=== PATIENT | male | born 1960 | race Caucasian/White ===

== ENCOUNTER 2018-06-13 17:01 | Inpatient (IN) | payer OTHER, SELFPAY ==
[2018-06-13] MEDS ORDERED: Labetalol HCl 100 MG/20 ML VIAL ONE (17:24)
[2018-06-13] MEDS ORDERED: niCARdipine 20MG In NaCl 20 MG/200 ML BAG ONE (17:25)
[2018-06-13 17:51] LABS: #Basophils 0.1 thou/uL (0.0-0.2); #Eosinphils 0.2 thou/uL (0.0-0.7); #Lymphocytes 1.7 thou/uL (1.20-3.40); #Neutrophils 8.9 thou/uL (1.40-6.50); %Basophils 0.9 % (0.0-1.0); %Eosinophils 1.7 % (0.0-10.0); %Lymphocytes 14.5 % (21.0-51.0); %Monocytes 8.3 % (0.0-10.0); %Neutrophils 74.6 % (42.0-75.0); Hemoglobin 15.3 g/dL (14.0-18.0); Mean Corpuscular HGB CONC 35.7 g/dL (32.0-36.0); Mean Corpuscular Hemoglobin 33.5 pg (27.0-31.0); Mean Corpuscular Volume 93.9 fL (78.0-98.0); Mean Platelet Volume 6.7 fL (7.4-10.4); Platelet Count 219 thou/uL (130-400); Red Blood Cell (RBC) Count 4.57 mill/uL (4.70-6.10)
[2018-06-13 17:59] LABS: INR-International Normal Ratio 0.9; PTT 26.1 SEC (22.9-36.1); Prothrombin Time 12.3 SEC (12.0-14.7)
[2018-06-13 18:06] LABS: ALT (SGPT) 16 U/L (8-55); AST (SGOT) 20 U/L (5-34); Albumin 4.5 g/dL (3.5-5.0); Alkaline Phosphatase 70 U/L (40-150); Anion Gap 17 mmol/L (10-20); BUN (Urea Nitrogen) 12 mg/dL (8.4-25.7); Bilirubin, Total 0.6 mg/dL (0.2-1.2); CK (CPK) 182 U/L (30-200); Calc. Creatinine Clearance 0 mL/min (70-130); Calcium 9.7 mg/dL (7.8-10.44); Carbon Dioxide 21 mmol/L (22-29); Chloride 104 mmol/L (98-107); Estimated GFR-MDRD 61; Globulin 2.7 g/dL (2.4-3.5); Glucose 103 mg/dL (70-105); Potassium 3.6 mmol/L (3.5-5.1); Protein, Total 7.2 g/dL (6.0-8.3); Sodium 138 mmol/L (136-145)
[2018-06-13 18:09] LABS: CKMB 2.7 ng/mL (0-6.6); Troponin I Less than 0.010 ng/mL (< 0.028)
--- NOTE | 2018-06-13 18:59 | CT ---
CT HEAD NONCONTRAST: History: Altered mental status. FINDINGS: No comparison. There is no evidence of acute intracranial hemorrhage or infarct. Ventricles appear no rmal in size, shape, and position. There is no mass effect or shift of midline structures. IMPRESSION: No acute intracranial abnormalities are demonstrated. POS: [facility]
--- NOTE | 2018-06-13 18:59 | RAD ---
CHEST ONE VIEW: History: Weakness. FINDINGS: No comparison. Cardiac silhouette is magnified by projection. Pulmonary vasculature unremarkable. Med iastinum is midline. Nipple shadows overlie the lung bases. No lobar consolidation or evidence of pne umothorax. classroom monitor leads overlie the chest. IMPRESSION: No active cardiopulmonary abnormalities are demonstrated. POS: [facility]
[2018-06-13] MEDS ORDERED: Acetaminophen 325 MG TAB PO PRN (22:26)
[2018-06-13] MEDS ORDERED: Ondansetron ODT 4 MG TAB SL PRN (22:26)
[2018-06-13] MEDS ORDERED: Ondansetron PF 4 MG/2 ML Vial IVP PRN (22:26)
[2018-06-13 22:30] VITALS: BMI 20.8
[2018-06-13] MEDS ORDERED: hydrALAZINE 20 MG/ML VIAL SLOW IVP PRN (23:20)
[2018-06-14 00:16] LABS: Troponin I 0.016 ng/mL (< 0.028)
--- NOTE | 2018-06-14 06:44 | HP ---
DATE OF ADMISSION: 06/13/2018 CHIEF COMPLAINT: Left-sided facial droop and left-sided weakness. HISTORY OF PRESENT ILLNESS: The patient is a 58-year-old male who presented via the emergency depart [facility]. The patient reports he has no history of diagnosis of hypertension. States he was in his [facility], went to bed on Thursday evening and felt okay. He slept through the night and the n ext day woke up about 1:00 in the morning on Thursday, the patient got up and went to the mirror and no ticed his left eye had some redness and irritation and felt like he had some left-sided facial swelli ng, he felt tightness and numbness in his left upper extremity and mildly similar in his left lower e xtremity, was not aware of any specific weakness in those areas. Currently, he continues to have faustino e what he describes as a "funny feeling" in his left eye and left upper extremity. He denies having had any problems with speech, swallowing, walking and everything else including the affected limbs we re functioning normally. REVIEW OF SYSTEMS: A 10-system review was negative except for those things mentioned in the history of present illness. PAST MEDICAL HISTORY: Notable for kidney stones. PAST SURGICAL HISTORY: The patient had a left-sided nephrectomy in 1986 secondary to a complicated s taghorn calculus. FAMILY HISTORY: His mother had heart problems. Father of a myocardial infarction and cancer. SOCIAL HISTORY: The patient denies drugs. He smokes 8-12 cigars per day and typically takes a shot of bourbon or júnior with each cigar that he smokes, states he does this 3-4 days per week. He is si ngle. His mother or sister would be his surrogate decision maker and he is a FULL CODE. ALLERGIES: None. MEDICATIONS: None. PHYSICAL EXAMINATION: VITAL SIGNS: Initially, temperature is 98.1, pulse 72, respirations 18, O2 sat 95% on room air, bloo d pressure is 167/103. GENERAL APPEARANCE: Age appropriate male. He is in no distress. He is awake, alert, oriented, plea iker, cooperative. HEENT: PERRL. No OP lesions. There is no erythema of the face or left eye. NECK: Supple and symmetric without lymphadenopathy, JVD, or carotid bruits. HEART: Regular rate and rhythm without murmurs, gallops or rubs. LUNGS: Clear to auscultation bilaterally with good chest wall expansion and air exchange. ABDOMEN: Soft, nontender, nondistended, positive bowel sounds, no masses, no organomegaly. EXTREMITIES: Warm and dry with no cyanosis, clubbing or edema. NEUROLOGIC: Normal. The patient has normal function and sensation and cranial nerves is cognitively intact. LABORATORY DATA: White count 12.0, hemoglobin 15.3, platelets 219. INR 0.9, PTT 26.1. Sodium 138, potassium 3.6, chloride 104, CO2 of 21, BUN 12, creatinine is 1.23, AST is 20, ALT is 16. CK 182, tr oponin less than 0.01, albumin 4.5. A CT of the brain shows no acute intracranial processes noted. Chest x-ray negative. IMPRESSION AND PLAN: 1. Left-sided paresthesias with possibly some left facial droop. The patient's blood pressure was s ignificantly elevated in the emergency department requiring some IV medications in the form of a drip . He was only on that briefly and his pressure improved and the drip was stopped. Continues to have some elevated readings here. We will give him p.r.n. medications. It is entirely possible that the patient may in fact have hypertensive urgency rather than true stroke symptoms. He certainly has ma nifestations and elevated blood pressure to account for hypertensive urgency. It is also possible th e patient has had a cerebrovascular accident, although initial CT scan is negative. We will obtain a n MRI of the brain and carotid Dopplers, echocardiogram and consult Neurology. 2. History of solitary kidney, given the elevated hypertension. We will obtain an ultrasound of the kidney to ensure that it remains good health. 3. History of cigar smoking and alcohol use. The patient does not appear to be a significant candid ate for alcohol withdrawal, but will need to continue to watch him closely. His use is not daily; th erefore, withdrawal is less likely.
[2018-06-14] MEDS ORDERED: Aspirin 325 MG TAB PO SCH (09:00)
--- NOTE | 2018-06-14 10:19 | ULT ---
BILATERAL RENAL ULTRASOUND: Date: 06/14/18 HISTORY: Hypertension. FINDINGS: The patient is status post left nephrectomy. The right kidney measures 11.3 cm in length without foca l mass or hydronephrosis. Cortical echogenicity and thickness is normal. The urinary bladder is gross ly unremarkable. Right-sided ureteral jet is present. IMPRESSION: Status post left nephrectomy, otherwise unremarkable exam. POS: [facility]
--- NOTE | 2018-06-14 10:29 | ULT ---
CAROTID ARTERIAL DOPPLER ULTRASOUND: DATE: 06/14/18 COMPARISON: None. HISTORY: TIA/CVA, assess for carotid artery disease. TECHNIQUE: Multiplanar Calle scale sonographic imaging of the arterial structures of the neck obtained with color flow and spectral analysis. FINDINGS: There is mild atherosclerotic plaque at the origin of the external carotid artery bilaterally. Antegr norma blood flow with normal arterial waveforms are documented within the carotid and vertebral system bilaterally. VESSEL PSV (cm/sec) EDV (cm/sec) Right CCA 104 20 Right ICA 106 50 Right ECA 100 19 Left CCA 105 31 Left ICA 100 39 Left ECA 100 20 ICA/CCA ratio is 1.0 bilaterally. IMPRESSION: No hemodynamically significant stenosis on the basis of sonographic velocity criteria. POS: [facility]
--- NOTE | 2018-06-14 11:26 | MRI ---
BRAIN MRI WITHOUT CONTRAST: Date: 06/14/18 COMPARISON: None. HISTORY: Altered mental status. TECHNIQUE: Multiplanar, multisequence MR imaging of the brain is obtained without contrast. FINDINGS: The diffusion-weighted imaging demonstrates no evidence for acute infarction. The axial gradient echo imaging demonstrates no evidence for intracranial hemorrhage. There is mild mucosal thickening seen throughout the paranasal sinuses with focal polypoid mucosal th ickening involving the alveolar recess of the left maxillary sinus. Arterial flow-voids at the axial level of the skull base appear grossly unremarkable on the T2-weighted imaging. Regional bone marrow signal intensity appears within normal limits. No midline shift, mass effect, or ventricular enlargement. IMPRESSION: No MR evidence of intracranial hemorrhage or acute infarction. POS: [facility]
[2018-06-14 11:32] LABS: #Eosinphils 0.2 thou/uL (0.0-0.7); #Lymphocytes 1.1 thou/uL (1.20-3.40); #Monocytes 0.6 thou/uL (0.11-0.59); #Neutrophils 4.8 thou/uL (1.40-6.50); %Basophils 0.4 % (0.0-1.0); %Eosinophils 2.8 % (0.0-10.0); %Monocytes 8.2 % (0.0-10.0); %Neutrophils 71.6 % (42.0-75.0); Hemoglobin 15.1 g/dL (14.0-18.0); Mean Corpuscular HGB CONC 34.1 g/dL (32.0-36.0); Mean Corpuscular Volume 99.8 fL (78.0-98.0); Mean Platelet Volume 6.8 fL (7.4-10.4); Platelet Count 217 thou/uL (130-400); RBC Distribution Width 11.3 % (11.5-14.5); Red Blood Cell (RBC) Count 4.45 mill/uL (4.70-6.10); White Blood Cell (WBC) Count 6.7 thou/uL (4.8-10.8)
[2018-06-14 11:49] LABS: Anion Gap 11 mmol/L (10-20); BUN (Urea Nitrogen) 11 mg/dL (8.4-25.7); Calc. Creatinine Clearance 83 mL/min (70-130); Calcium 9.2 mg/dL (7.8-10.44); Carbon Dioxide 24 mmol/L (22-29); Cardiac Risk 3.9 (Less than 4.5); Chloride 106 mmol/L (98-107); Cholesterol 173 mg/dl (< 200 Desired); Estimated GFR-MDRD 78; Glucose 98 mg/dL (70-105); HDL Cholesterol 44 mg/dL (>60 Neg Risk); LDL Cholesterol, Calculated 97 mg/dL; Potassium 4.6 mmol/L (3.5-5.1); Sodium 136 mmol/L (136-145); Triglycerides 161 mg/dL (Less than 150)
[2018-06-14] MEDS ORDERED: NIFEdipine XL 30 MG TAB PO SCH (12:45)
[2018-06-14 14:21] LABS: Bilirubin Negative (Negative); Blood, Urine Negative (Negative); Clarity CLEAR (Clear); Glucose, Urine (Dipstick) Negative (Negative); Leukocyte Trace (Negative); Nitrite Negative (Negative); Protein, Urine (Dipstick) Negative (Neg-Trace); Specific Gravity, Urine 1.022 (1.002-1.036)
[2018-06-14 14:23] LABS: Bacteria/HPF None Seen HPF (None Seen); Hyaline Casts/LPF 0-3 HYALINE CAST LPF (0-3 Hyaline); Squamous Epithelial None Seen HPF (0-3); WBC/HPF None Seen HPF (0-3)
[2018-06-14 14:30] LABS: Amphetamine Not Detected (NotDetected); Barbiturates Screen Not Detected (NotDetected); Benzodiazepine Screen Not Detected (NotDetected); Cocaine Metabolite Screen Not Detected (NotDetected); Medtox Control Line Valid? VALID (VALID); Medtox Reader # READER 1; Methadone Not Detected (NotDetected); Methamphetamine Not Detected (NotDetected); Opiate Screen Not Detected (NotDetected); Oxycodone Screen Not Detected (NotDetected); Phencyclidine (PCP) Not Detected (NotDetected); THC/Cannabinoid Screen Not Detected (NotDetected); Tricyclic Screen Not Detected (NotDetected)
[2018-06-14 14:37] LABS: Transitional Epithelial 0-3 HPF (0-3)
[2018-06-14 14:45] LABS: RBC/HPF None Seen HPF (0-3)
[2018-06-14] MEDS ORDERED: Acetaminophen 325 MG TAB PO PRN (20:20)
[2018-06-14] MEDS: NIFEdipine XL 30 MG TAB PO SCH (20:33)
--- NOTE | 2018-06-14 21:35 | PDOC.PN ---
- Subjective Encounter Start Date: 06/14/18 Encounter Start Time: 13:30 Patient seen and examined for HTN crisis/TIA. No new focal deficits. No new complaints. No overnight events - Objective Resuscitation Status: Resuscitation Status FULL:Full Resuscitation MAR Reviewed: Yes Vital Signs & Weight: Vital Signs (12 hours) Temp Pulse Resp BP BP Pulse Ox 06/14/18 20:33 75 156/94 H 06/14/18 19:36 98.4 F 83 15 136/79 95 06/14/18 19:28 98 06/14/18 16:00 86 18 149/91 H 98 06/14/18 15:05 76 157/116 H 06/14/18 13:42 76 166/104 H 06/14/18 12:00 76 18 180/113 H 99 Weight Weight 157 lb 8 oz I&O: 06/13/18 06/14/18 06/15/18 06:59 06:59 06:59 Intake Total 200 Output Total 300 Balance 200 -300 Result Diagrams: 06/14/18 10:54 06/14/18 10:54 EKG Reviewed by me: Yes (Tele SR) Phys Exam - Physical Examination Constitutional: NAD Neck: no JVD Respiratory: no wheezing, no rales, no rhonchi, clear to auscultation bilateral Cardiovascular: RRR, no rub no heaves/pulsations Gastrointestinal: soft, non-tender, no distention, positive bowel sounds Musculoskeletal: no edema Neurological: non-focal, normal sensation, moves all 4 limbs Psychiatric: normal affect, A&O x 3 Dx/Plan - Plan DVT proph w/SCDs 1. HTN crisis with suspected TIA causing left sided weakness with facial droop - improving Cardene drip dced Start Procardia XL, Cont PRN Hydralazine Echo pending MRI brain/Carotid - neg Stat Statins/ASA 2. Tobacco dep/ Intermittent alcohol use Counselled 3. h/o Left nephrectomy Will avoid Nephrotoxic agents Review of Systems - Review of Systems Cardiovascular: negative: chest pain, palpitations, orthopnea, paroxysmal nocturnal dyspnea, edema, light headedness, other Gastrointestinal: negative: Nausea, Vomiting, Abdominal Pain, Diarrhea, Constipation, Melena, Hematochezia, Other - Medications/Allergies Allergies/Adverse Reactions: Allergies Allergy/AdvReac Type Severity Reaction Status Date / Time No Known Drug Allergies Allergy Verified 06/13/18 22:24 Medications: Current Medications Acetaminophen (Tylenol) 650 mg PO Q4H PRN PRN Reason: Headache/Fever or Pain Last Admin: 06/14/18 20:33 Dose: 650 mg Aspirin (Ecotrin) 81 mg PO DAILY [facility] Hydralazine HCl (Apresoline) 10 mg SLOW IVP Q4H PRN PRN Reason: SBP > 185, DBP > 100 Last Admin: 06/14/18 15:05 Dose: 10 mg Nifedipine (Procardia Xl) 30 mg PO BID [facility] Last Admin: 06/14/18 20:33 Dose: 30 mg
--- NOTE | 2018-06-14 22:07 | CON ---
DATE OF CONSULTATION: 06/14/2018 This is a 58-year-old male who has never been to the doctor. He presented with left-sided weakness, all of those symptoms have resolved. He was noted to be hypertensive. 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 PAST HISTORY: 58-year-old male who has never been to the doctor. FAMILY HISTORY: Positive for heart disease. SOCIAL HISTORY: He smoked cigars for pretty much all day long. He drinks most of the day. REVIEW OF SYSTEMS: 10 point review of systems completed, otherwise negative. ALLERGIES: He has no drug allergies, was on no medications. Prior to admission, he does have a family history of hypertension. PHYSICAL EXAMINATION: VITAL SIGNS: He has been moderately hypertensive when I saw him this morning. His blood pressure is 118/130, heart rate is 76, respiratory rate is 18, oximetry is 99 on room air. HEENT: Pupils are equal. Sclerae is anicteric. NECK: Supple. LUNGS: Clear. HEART: Regular rhythm, grade 2/6 systolic murmur. ABDOMEN: Soft and nontender. EXTREMITIES: Without clubbing, cyanosis or edema. NEUROLOGIC: Grossly nonfocal. He has equal strength now. Abdominal ultrasound shows a left nephrectomy. Radiologist did not know he has a single kidney. Symptoms most likely secondary to hypertensive urgency versus transient ischemic attack. He had a noncontrast head CT, which was unremarkable, had no vascular imaging. It has been ordered His MRI that shows no infarction. He will need to be in the hospital for several days. Blood pressure is controlled. I agree with current care. He probably could transfer out of the Intermediate Care Unit to the stroke unit or a medical bed as long as he is having frequent vital signs and evaluations by the nursing staff. This is a 50 minute consult with greater than 50% of time spent on unit with coordination of care. [facility]
--- NOTE | 2018-06-15 07:44 | PRG ---
DATE OF SERVICE: 06/15/2018 Blayne Briggs has no complaints. He has no recurrence of his symptoms. PHYSICAL EXAMINATION: VITAL SIGNS: His blood pressure is much better today 136/79. Last night 142/80. At 4:00 this morni ng heart rates in the 70s, oximetry is 95 on room air. LUNGS: Clear. HEART: Regular rhythm. ABDOMEN: Soft. LABORATORY: No new lab today. Echocardiogram shows a depressed left ventricular systolic function 35%. IMPRESSION: Transient ischemic attack versus hypertensive related neurological abnormalities versus embolic phenomenon from his cardiomyopathy. Cardiology needs to be consulted. He is stable to move out of the Intermediate Care Unit. Smoking cessation was emphasized today. Com pliance with medications also emphasized. At some point he will need evaluation of his coronary lobo zeeshan probably.
[2018-06-15] MEDS: Aspirin 81 mg Enteric Coated Tablet PO SCH (08:11)
[2018-06-15] MEDS: NIFEdipine XL 30 MG TAB PO SCH (08:12)
[2018-06-15] MEDS ORDERED: Labetalol HCl 100 MG/20 ML VIAL SLOW IVP PRN (09:31)
[2018-06-15] MEDS ORDERED: Carvedilol 3.125 MG TAB PO SCH (09:45)
[2018-06-15] MEDS ORDERED: Furosemide 20 MG TAB PO SCH (12:30)
--- NOTE | 2018-06-15 14:13 | CON ---
DATE OF CONSULTATION: 06/15/2018 HISTORY: Blayne Briggs is a 58-year-old white male, who denies any previous cardiac problems. He denies ever being told that he had hypertension in the past. He awoke at 01:00 a.m. on 06/13/2018 with left-sided facial paresthesias and numbness. He came to the emergency room, and on presentation, his blood pressure was 189/116. Head CT and later head MRI showed no evidence of infarction. He has been started on the blood pressure medications. PAST MEDICAL HISTORY: He denies history of hypertension, diabetes, hypercholesterolemia. He did have a left staghorn calculus with multiple infections in the past. OPERATIONS: Left nephrectomy. MEDICATIONS: None. ALLERGIES: None. SOCIAL HISTORY: He smokes 8-12 cigars per day. He drinks, between smoking cigars, 3-4 drinks per day. FAMILY HISTORY: Negative for coronary artery disease in the immediate family. REVIEW OF SYSTEMS: A 12-point review of systems, otherwise, is unremarkable. PHYSICAL EXAMINATION: VITAL SIGNS: Blood pressure 133/92 and pulse 71. HEENT: PERRL. NECK: Supple. CHEST: Clear. CARDIAC EXAMINATION: S1 and S2 normal without any S3, S4, or murmurs. ABDOMEN: Normal bowel sounds, without tenderness or organomegaly. EXTREMITIES: Reveal no clubbing, cyanosis, or edema. NEUROLOGICAL: Grossly intact. LABORATORY DATA: EKG reveals normal sinus rhythm, possible left atrial enlargement, but otherwise unremarkable. Hemoglobin 15.1, hematocrit 44.4, white count 6700, platelets 217,000. INR 0.9. Sodium 136, potassium 4.6, chloride 106, carbon dioxide 24, BUN 11, creatinine 0.99, cholesterol 173, triglycerides 161, HDL 44, LDL 97. TSH is normal. Urine drug screen is unremarkable. Echocardiogram revealed ejection fraction of 35%-40%, mild left ventricular enlargement, mild mitral regurgitation, mild tricuspid regurgitation. IMPRESSION: 1. Cardiomyopathy of uncertain etiology. Certainly, this could be related to uncontrolled hypertension, alcoholic cardiomyopathy, or related to coronary artery disease. 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 2. Hypertension, untreated. 3. LDL of 97. 4. ETOH use. 5. Smoker. 6. S/P left nephrectomy. PLAN: Procardia will be discontinued, and instead, he will be placed on lisinopril 5 mg b.i.d. He will be continued on the carvedilol. He is on aspirin and atorvastatin 10 mg, furosemide 20 mg q.a.m. also will be added. He will undergo adenosine Cardiolite testing to evaluate for possible coronary artery disease. The patient at the present time states he does not think he has health insurance, although he is waiting to get a final word on this. Consideration in the future should be given to transitioning from DAMIEN inhibitor to Entresto if he does indeed have health insurance. [facility]
[2018-06-15] MEDS: Carvedilol 3.125 MG TAB PO SCH (16:40)
[2018-06-15] MEDS: Lisinopril 5 MG TAB PO SCH (20:28)
[2018-06-15] MEDS ORDERED: Atorvastatin Calcium 10 MG TAB PO SCH (21:00)
[2018-06-15] MEDS ORDERED: Lorazepam 1 MG TAB PO PRN (21:17)
--- NOTE | 2018-06-15 21:20 | PDOC.PN ---
- Subjective Encounter Start Date: 06/15/18 Encounter Start Time: 09:30 Patient seen and examined for HTN crisis. No new focal deficits No new complaints. No overnight events - Objective Resuscitation Status: Resuscitation Status FULL:Full Resuscitation MAR Reviewed: Yes Vital Signs & Weight: Vital Signs (12 hours) Temp Pulse Resp BP BP Pulse Ox 06/15/18 20:28 70 117/71 06/15/18 20:00 98.3 F 73 18 117/71 97 06/15/18 15:26 98.8 F 75 16 123/71 97 06/15/18 11:35 98.6 F 71 16 133/92 H 96 Weight Weight 156 lb 14.4 oz I&O: 06/14/18 06/15/18 06/16/18 06:59 06:59 06:59 Intake Total 200 700 720 Output Total 700 Balance 200 0 720 Result Diagrams: 06/14/18 10:54 06/14/18 10:54 EKG Reviewed by me: Yes (Tele SR) Phys Exam - Physical Examination Constitutional: NAD Respiratory: no wheezing, no rhonchi Cardiovascular: RRR, no rub Gastrointestinal: soft, non-tender, positive bowel sounds Musculoskeletal: no edema Neurological: moves all 4 limbs Dx/Plan - Plan DVT proph w/SCDs 1. HTN crisis with suspected TIA causing left sided weakness with facial droop - improving s/p Cardene drip Cont PRN Hydralazine MRI brain/Carotid - neg Stat Statins/ASA 2. Chronic systolic heart failure - ACC stage C Consult Cardiology Add low dose Coreg with ACEI 3. Tobacco dep/ Intermittent alcohol use - Counselled Add ASE protocol 4. h/o Left nephrectomy Will avoid Nephrotoxic agents Review of Systems - Review of Systems Respiratory: negative: Cough, Dry, Shortness of Breath, Hemoptysis, SOB with Excertion, Pleuritic Pain, Sputum, Wheezing Cardiovascular: negative: chest pain, palpitations, orthopnea, paroxysmal nocturnal dyspnea, edema, light headedness, other - Medications/Allergies Allergies/Adverse Reactions: Allergies Allergy/AdvReac Type Severity Reaction Status Date / Time No Known Drug Allergies Allergy Verified 06/13/18 22:24 Medications: Current Medications Acetaminophen (Tylenol) 650 mg PO Q4H PRN PRN Reason: Headache/Fever or Pain Last Admin: 06/14/18 20:33 Dose: 650 mg Aspirin (Ecotrin) 81 mg PO DAILY [facility] Last Admin: 06/15/18 08:11 Dose: 81 mg Atorvastatin Calcium (Lipitor) 10 mg PO HS [facility] Last Admin: 06/15/18 20:28 Dose: 10 mg Carvedilol (Coreg) 3.125 mg PO BID-WM [facility] Last Admin: 06/15/18 16:40 Dose: 3.125 mg Furosemide (Lasix) 20 mg PO DAILY [facility] Hydralazine HCl (Apresoline) 10 mg SLOW IVP Q4H PRN PRN Reason: SBP > 185, DBP > 100 Last Admin: 06/14/18 15:05 Dose: 10 mg Labetalol HCl (Normodyne) 10 mg SLOW IVP Q4H PRN PRN Reason: Systolic BP > 180 Lisinopril (Zestril) 5 mg PO BID [facility] Last Admin: 06/15/18 20:28 Dose: 5 mg Sodium Chloride (Flush - Normal Saline) 10 ml IVF Q12HR [facility] Last Admin: 06/15/18 20:28 Dose: 10 ml Sodium Chloride (Flush - Normal Saline) 10 ml IVF PRN PRN PRN Reason: Saline Flush
[2018-06-16] MEDS ORDERED: Furosemide 20 MG TAB PO SCH (09:00)
[2018-06-16] MEDS ORDERED: Folic Acid 1 MG TAB PO SCH (09:00)
[2018-06-16] MEDS ORDERED: NIFEdipine XL 30 MG TAB PO SCH (09:00)
[2018-06-16] MEDS ORDERED: Multivit, Therapeutic 1 TAB PO SCH (09:00)
[2018-06-16] MEDS: Lisinopril 5 MG TAB PO SCH (11:31)
[2018-06-16] MEDS: Carvedilol 3.125 MG TAB PO SCH ×2 (11:34→18:20)
[2018-06-16] MEDS: Aspirin 81 mg Enteric Coated Tablet PO SCH (11:34)
--- NOTE | 2018-06-16 13:42 | NM ---
CARDIAC SPECT: CLINICAL HISTORY: New heart failure, hypertension, diabetes, dyslipidemia, smoker. TECHNIQUE: A myocardial perfusion scan was performed using the single isotope one day protocol with technetium-9 9m sestamibi. 11 mCi were injected intravenously for the rest exam followed by 33 mCi for the stress exam. Pharmacologic stress with Adenosine was monitored and interpreted by Dr. Mcmahon. FINDINGS: Fairly homogeneous tracer distribution is seen in the myocardial segments on stress and rest images w ithout fixed or reversible defects. GATED SPECT LVEF: 42%. WALL MOTION EXAM: Global hypokinesis. IMPRESSION: No evidence of reversible ischemia. POS: [facility]
[2018-06-16 16:01] VITALS: BP 119/72; TEMP 97.7
[2018-06-16] MEDS ORDERED: ADENOSINE 60 MG/20 ML VIAL ONE (18:49)
--- NOTE | 2018-06-16 20:40 | DIS ---
DATE OF DISCHARGE: 06/16/2018 DISCHARGE DISPOSITION: Home. Follow up with [facility] in 1 week. Follow up with Dr. Jordan Hernandez in 2 months. ALLERGIES: No known drug allergies. The patient was seen and examined on the day of discharge. Denies any new complaints. No chest pain , shortness of breath, or palpitations. DISCHARGE MEDICATIONS: Aspirin 325 mg daily, carvedilol 3.125 mg twice a day, folic acid 1 mg daily, simvastatin 10 mg at bedtime, thiamine, Lasix 20 mg daily, lisinopril 5 mg b.i.d., multivitamin 1 ta blet daily. Basic metabolic profile after 1 week is recommended. Primary care physician is advised to follow. The patient was extensively counseled on congestive heart failure. BRIEF HOSPITAL COURSE: The patient is a 58-year-old male with tobacco dependence, presented to the e mergency room with stroke-like symptoms. Please refer to the history and physical for further detail s. The patient was admitted to the intermediate care unit with a diagnosis of hypertensive crisis. He w as placed on Cardene drip in the emergency room that was later discontinued. He had left-sided weakn ess as well as facial droop on admission that resolved once his blood pressure improved. MRI of the brain was negative for acute CVA. Carotid Doppler was negative for hemodynamically significant steno sis. Echocardiogram showed left ventricular ejection fraction 35-40% with mild mitral regurgitation, mild tricuspid regurgitation without any thrombus in the cardiac chambers. The patient was evaluate d by Cardiology, Dr. Jordan Hernandez. His medications have been optimized per Cardiology. He underw ent a Cardiolite stress test on the day of discharge that was negative for reversible ischemia. Ejec tion fraction on the stress test was 42%. He has been cleared by consultants for discharge. FINAL DIAGNOSES: 1. Hypertensive crisis requiring Cardene drip. 2. Transient ischemic attack. 3. Chronic systolic heart failure, ejection fraction 35-40% range. 4. Tobacco dependence. 5. Intermittent alcohol use. 6. History of left nephrectomy. 7. Chronic kidney disease stage 2. 8. Dyslipidemia. Fasting lipid profile showed triglyceride 161, cholesterol 173, LDL of 97, HDL of 44. DIAGNOSTIC TESTS: TSH was normal at 0.94. BNP was negative. Urine drug screen was negative. Plan of care was discussed with the patient in detail and he stated understanding.
== END 2018-06-16 19:37 | disposition home or self-care (01) | DRG 69 ==
LOC: SCSER 17:01 → ERHOLD 18:35 → IMCU/EMU 21:52 → 2SE 06-15 06:40
PROVIDERS: ADMIT Internal Medicine; ATTEND Internal Medicine
DX: G45.9 Transient cerebral ischemic attack, unspecified (principal); I16.9 Hypertensive crisis, unspecified; G81.94 Hemiplegia, unspecified affecting left nondominant side; I50.22 Chronic systolic (congestive) heart failure; I42.9 Cardiomyopathy, unspecified; I13.0 Hypertensive heart and chronic kidney disease with heart failure and stage 1 through stage 4 chronic kidney disease, or unspecified chronic kidney disease; R29.810 Facial weakness; Z87.442 Personal history of urinary calculi; Z90.5 Acquired absence of kidney; F17.210 Nicotine dependence, cigarettes, uncomplicated; I08.1 Rheumatic disorders of both mitral and tricuspid valves; E78.5 Hyperlipidemia, unspecified; N18.2 Chronic kidney disease, stage 2 (mild)
CPT/HCPCS: 36415; 36416; 70450; 70551; 71045; 76775; 78452; 80053; 80061; 80306; 81001; 82550; 82553; 83880; 84443; 84484; 85025; 85610; 85730; 93005; 93017; 93306; 93880; 96365; 96366; A9500; J0153; J0360

== ENCOUNTER 2018-07-10 15:10 | Observation (INO) | payer SELFPAY ==
[2018-07-10 15:33] LABS: #Eosinphils 0.4 thou/uL (0.0-0.7); #Lymphocytes 1.6 thou/uL (1.20-3.40); #Monocytes 0.5 thou/uL (0.11-0.59); #Neutrophils 4.2 thou/uL (1.40-6.50); %Basophils 0.7 % (0.0-1.0); %Eosinophils 5.3 % (0.0-10.0); %Monocytes 7.6 % (0.0-10.0); %Neutrophils 62.4 % (42.0-75.0); Hemoglobin 15.2 g/dL (14.0-18.0); Mean Corpuscular HGB CONC 36.1 g/dL (32.0-36.0); Mean Corpuscular Hemoglobin 34.9 pg (27.0-31.0); Mean Corpuscular Volume 96.8 fL (78.0-98.0); Mean Platelet Volume 6.8 fL (7.4-10.4); Platelet Count 241 thou/uL (130-400); RBC Distribution Width 11.1 % (11.5-14.5); Red Blood Cell (RBC) Count 4.36 mill/uL (4.70-6.10); White Blood Cell (WBC) Count 6.7 thou/uL (4.8-10.8)
[2018-07-10 15:38] LABS: INR-International Normal Ratio 0.9; Prothrombin Time 12.1 SEC (12.0-14.7)
[2018-07-10 15:39] LABS: PTT 27.1 SEC (22.9-36.1)
[2018-07-10 15:45] LABS: ALT (SGPT) 13 U/L (8-55); AST (SGOT) 19 U/L (5-34); Albumin 4.2 g/dL (3.5-5.0); Alkaline Phosphatase 66 U/L (40-150); Anion Gap 16 mmol/L (10-20); BUN (Urea Nitrogen) 13 mg/dL (8.4-25.7); Bilirubin, Total 0.3 mg/dL (0.2-1.2); CK (CPK) 188 U/L (30-200); Calc. Creatinine Clearance 0 mL/min (70-130); Calcium 9.1 mg/dL (7.8-10.44); Carbon Dioxide 20 mmol/L (22-29); Chloride 108 mmol/L (98-107); Estimated GFR-MDRD 70; Glucose 91 mg/dL (70-105); Potassium 4.2 mmol/L (3.5-5.1); Protein, Total 7.2 g/dL (6.0-8.3); Sodium 140 mmol/L (136-145)
[2018-07-10 15:50] LABS: CKMB 2.5 ng/mL (0-6.6); Troponin I Less than 0.010 ng/mL (< 0.028)
[2018-07-10 15:56] LABS: Magnesium 2.1 mg/dL (1.6-2.6)
[2018-07-10 16:11] LABS: Bilirubin Negative (Negative); Blood, Urine Negative (Negative); Clarity CLEAR (Clear); Glucose, Urine (Dipstick) Negative (Negative); Leukocyte Negative (Negative); Nitrite Negative (Negative); Protein, Urine (Dipstick) Negative (Neg-Trace); Specific Gravity, Urine 1.009 (1.002-1.036); Urobilinogen 0.2 mg/dL (0.2-1.0); pH, Urine 6.5 (5.0-9.0)
[2018-07-10 16:14] LABS: Acetaminophen Less than 6.0 mcg/mL (10.0-30.0); Alcohol 115 mg/dL (Less than 10); Salicylate Less than 8.0 mg/dL (15.0-30.0)
[2018-07-10 16:34] LABS: Amphetamine Not Detected (NotDetected); Barbiturates Screen Not Detected (NotDetected); Benzodiazepine Screen Not Detected (NotDetected); Cocaine Metabolite Screen Not Detected (NotDetected); Medtox Control Line Valid? VALID (VALID); Medtox Reader # READER 1; Methadone Not Detected (NotDetected); Methamphetamine Not Detected (NotDetected); Opiate Screen Not Detected (NotDetected); Oxycodone Screen Not Detected (NotDetected); Phencyclidine (PCP) Not Detected (NotDetected); THC/Cannabinoid Screen Not Detected (NotDetected); Tricyclic Screen Not Detected (NotDetected)
--- NOTE | 2018-07-10 16:44 | CT ---
BRAIN CT WITHOUT IV CONTRAST: 07/10/18 HISTORY: 58-year-old male with history of stroke alert, unresponsive. Bilateral maxillary sinus mucosal disease as well as ethmoid and sphenoid sinus mucosal disease. The mastoids are clear. There is no focal mass or midline shift. No intra or extra-axial hemorrhage. No C T evidence for acute infarct. IMPRESSION: Sinus mucosal disease. No significant acute process involving the brain. No mass or bleed. Findings were discussed with Dr. Cisneros's nurse in the ER at 3:37 p.m., 07/10/18. He was with a patie nt and could not come to the phone. POS: [facility]
--- NOTE | 2018-07-10 17:40 | RAD ---
CHEST ONE VIEW: 07/10/18 COMPARISON: 06/13/18 HISTORY: Pain. Unresponsive patient. FINDINGS: Normal cardiac silhouette. The pulmonary vessels and hilum are normal. Costophrenic angles are clear. No masses or consolidation. No pneumothorax or osseous abnormalities. IMPRESSION: No acute cardiopulmonary process. POS: [facility]
[2018-07-10 19:05] LABS: Troponin I Less than 0.010 ng/mL (< 0.028)
[2018-07-10] MEDS ORDERED: Acetaminophen 325 MG TAB PO PRN (19:56)
[2018-07-10] MEDS ORDERED: Ondansetron PF 4 MG/2 ML Vial IVP PRN (19:56)
[2018-07-10] MEDS ORDERED: Ondansetron ODT 4 MG TAB PO PRN (19:56)
[2018-07-10] MEDS ORDERED: Labetalol HCl 100 MG/20 ML VIAL SLOW IVP PRN (20:00)
[2018-07-10] MEDS ORDERED: hydrALAZINE 20 MG/ML VIAL SLOW IVP PRN (20:00)
[2018-07-10] MEDS ORDERED: Sodium Chloride 0.9% 1,000 ML IV SCH (20:00)
[2018-07-10] MEDS ORDERED: cloNIDine 0.1 MG TAB PO PRN (20:00)
--- NOTE | 2018-07-10 20:20 | HP ---
DATE OF ADMISSION: 07/10/2018 PRIMARY CARE PHYSICIAN: Saeed Ramirez. PRIMARY CASH SHORTAGE INVESTIGATOR: Dr. Jordan Hernandez. CHIEF COMPLAINT: Altered mentation. HISTORY OF PRESENT ILLNESS: Patient is a 58-year-old male with hypertension with recent hospitalizat ion for hypertensive crisis and transient ischemic attack, currently on aspirin, presented to the [facility] room with altered mentation. History was obtained from the patient and the family at the [facility]. Patient was found unresponsive in his vehicle by his employer as the patient did not arrive to work t his morning. He was unarousable. For this reason, EMS was called. He was found to have weakness ma inly in the left extremities. He was brought to the emergency room for possible stroke. In the emergency room, initial vital signs showed temperature 97.9, respirations 16, pulse rate of 77 , blood pressure 161/110 with O2 saturation 97% on room air. CT scan of the brain was negative for a cute findings. EKG showed sinus rhythm without significant ST-T wave changes. He was found to have elevated blood alcohol level of 115. His mentation had significantly improved. He does not have any memory of the above event. He denies any chest pain, shortness of breath, palpitations, fever or ch ills. He has some headache on his left side. He took all of his medications earlier today. PAST MEDICAL HISTORY: 1. Hypertension with recent hospitalization for hypertensive crisis. 2. Chronic systolic heart failure, ejection fraction 35%-40% range. 3. Recent transient ischemic attack. 4. Tobacco dependence. 5. Alcohol abuse. 6. History of left nephrectomy. 7. Chronic kidney disease stage 2. 8. Dyslipidemia. PAST SURGICAL HISTORY: Left-sided nephrectomy for complicated staghorn calculus in 1986. ALLERGIES: No known drug allergies. CURRENT HOME MEDICATIONS: Patient is unable to recall any of his home medication. He states that al l of his medications are same as the recent hospitalization. SOCIAL HISTORY: Patient denies any drug use. He smokes cigars on a daily basis. He drinks alcohol 3-4 days per week. He is single. He makes his own decisions with the help of his family. FAMILY HISTORY: Positive for heart disease. Father of [place]. He also had cancer. REVIEW OF SYSTEMS: The following complete review of systems was negative, unless otherwise mentioned in the HPI or below: Constitutional: Weight loss or gain, ability to conduct usual activities. Skin: Rash, itching. Eyes: Double vision, pain. ENT/Mouth: Nose bleeding, neck stiffness, pain, tenderness. Cardiovascular: Palpitations, dyspnea on exertion, orthopnea. Respiratory: Shortness of breath, wheezing, cough, hemoptysis, fever or night sweats. Gastrointestinal: Poor appetite, abdominal pain, heartburn, nausea, vomiting, constipation, or diarr hea. Genitourinary: Urgency, frequency, dysuria, nocturia. Musculoskeletal: Pain, swelling. Neurologic/Psychiatric: Anxiety, depression. Allergy/Immunologic: Skin rash, bleeding tendency. PHYSICAL EXAMINATION: VITAL SIGNS: As discussed above. GENERAL: A 58-year-old male in no apparent distress. HEENT: Head is atraumatic, normocephalic. Sclerae are anicteric. Moist mucous membrane, no oral le denys. Pupils were equally reacting to light. NECK: Supple, no JVD, no carotid bruit, no neck stiffness. LUNGS: Clear to auscultation bilaterally. HEART: S1, S2 present. Regular rate and rhythm. No significant murmur, rubs, or gallops appreciate d. ABDOMEN: Soft, nontender, bowel sounds present. EXTREMITIES: No edema or calf tenderness. NEUROLOGIC: Grossly nonfocal, moves all four extremities. Power was 5/5 in all extremities. Finger -to-nose and sgyj-ym-dxle test was normal. Cranial nerves II-XII were normal on examination. PSYCHIATRIC: Alert, awake, oriented x3. SKIN: Warm and dry. LYMPH NODES: No palpable lymph nodes in the neck. PERIPHERAL VASCULAR: Radial pulses palpable bilaterally. MUSCULOSKELETAL: No joint swelling or tenderness. IMAGING DATA AND LABORATORY DATA: EKG by my review as discussed above. Chest x-ray by my review was negative for infiltrate. Troponins were negative. Lipase was slightly elevated at 119, BUN 13, cre atinine 1.08. Urinalysis was negative. WBC 6.7 with hemoglobin 15.2. IMPRESSION: 1. Toxic metabolic encephalopathy secondary to alcohol intoxication. Stroke appears to be less like ly. 2. Recent transient ischemic attack, on aspirin. 3. Recent hospitalization for hypertensive crisis requiring Cardene drip. 4. Hypertension. 5. Chronic systolic heart failure, ejection fraction 35%-40%. 6. Recent stress test which was negative for reversible ischemia. 7. Tobacco dependence. 8. Alcohol abuse. 9. History of left nephrectomy in 1986. 10. Chronic kidney disease stage 2. 11. Dyslipidemia. 12. Slightly elevated lipase, probably secondary to alcoholism. PLAN: The patient will be monitored on the telemetry unit as 23-hour observation. We will obtain se rial troponins. We will get frequent neuro checks. Patient had a recent MRI that was negative for a cute CVA. If he shows any new deficit, we will consider repeat MRI. We will continue aspirin. Sonali ent was extensively counseled to quit alcohol as well as smoking. We will resume home medications ba sed on recent discharge. We will start him on thiamine, folic acid, multivitamins. Plan of care was discussed with the patient in detail. He stated understanding.
[2018-07-10] MEDS ORDERED: Simvastatin 20 MG TAB PO SCH (21:00)
[2018-07-10 21:37] LABS: Troponin I Less than 0.010 ng/mL (< 0.028)
[2018-07-10] MEDS: Lisinopril 5 MG TAB PO SCH (22:03)
[2018-07-10] MEDS: Carvedilol 3.125 MG TAB PO SCH (22:04)
[2018-07-10] MEDS: Famotidine 20 MG TAB PO SCH (22:04)
[2018-07-11] MEDS: Lisinopril 5 MG TAB PO SCH (08:20)
[2018-07-11] MEDS: Carvedilol 3.125 MG TAB PO SCH (08:21)
[2018-07-11] MEDS: Famotidine 20 MG TAB PO SCH (08:21)
[2018-07-11] MEDS ORDERED: Multivit, Therapeutic 1 TAB PO SCH (09:00)
[2018-07-11] MEDS ORDERED: Folic Acid 1 MG TAB PO SCH (09:00)
[2018-07-11] MEDS ORDERED: Aspirin 325 mg Enteric Coated Tablet PO SCH (09:00)
[2018-07-11 11:27] VITALS: BP 133/85; TEMP 98.7
--- NOTE | 2018-07-12 12:14 | DIS ---
DATE OF ADMISSION: 07/10/2018 DATE OF DISCHARGE: 07/11/2018 DISCHARGE DISPOSITION: Home. FOLLOWUP: 1. Follow up with primary care physician at [facility] in 1 week. 2. Follow up with Dr. Jordan Hernandez in 2 weeks. ALLERGIES: No known drug allergies. DISCHARGE MEDICATIONS: Same as admission medication. The patient was extensively counseled to be co mpliant with all of his medication. He was counseled to quit alcohol. BRIEF HOSPITAL COURSE: The patient is a 58-year-old male with hypertension with recent hospitalizati on for hypertensive crisis, chronic systolic heart failure, ejection fraction 35%-40% range, and rece nt TIA on aspirin, presented to the emergency room with altered mentation. His blood pressure in the emergency room was 161/110 with elevated alcohol level of 115. He was found unresponsive in his veh icle by his employer. The employer came to check on him since he did not show up at work. The patie nt was monitored overnight in the hospital. His blood pressure remained stable on his home regimen. His systolic blood pressure on the day of discharge is 133 with diastolic of 85. He appears stable for discharge. He was extensively counseled to quit drinking. FINAL DIAGNOSES: 1. Toxic metabolic encephalopathy, most likely secondary to alcohol intoxication. No neuro deficit noted. 2. Recent transient ischemic attack, on aspirin. 3. Recent hospitalization for hypertensive crisis requiring Cardene drip. 4. Hypertension. 5. Chronic systolic heart failure, ejection fraction 35%-40%, ACC stage C. 6. Recent stress test, which was negative for reversible ischemia. 7. Tobacco dependence. 8. Alcohol abuse. 9. History of left nephrectomy in 1986. 10. Chronic kidney disease stage 2. 11. Dyslipidemia. 12. Slightly elevated lipase secondary to alcoholism. Plan of care was discussed with the patient and the family in detail. They stated understanding.
== END 2018-07-11 13:06 | disposition home or self-care (01) ==
LOC: ERS 15:10 → 2SE 16:03
PROVIDERS: ADMIT Internal Medicine; ATTEND Internal Medicine
DX: G92 Toxic encephalopathy (principal); I13.0 Hypertensive heart and chronic kidney disease with heart failure and stage 1 through stage 4 chronic kidney disease, or unspecified chronic kidney disease; N18.2 Chronic kidney disease, stage 2 (mild); I50.22 Chronic systolic (congestive) heart failure; F17.290 Nicotine dependence, other tobacco product, uncomplicated; E78.5 Hyperlipidemia, unspecified; F10.10 Alcohol abuse, uncomplicated; Z86.73 Personal history of transient ischemic attack (TIA), and cerebral infarction without residual deficits; Z79.82 Long term (current) use of aspirin; Z90.5 Acquired absence of kidney; Z79.899 Other long term (current) drug therapy
CPT/HCPCS: 36415; 36416; 70450; 71045; 80053; 80306; 80307; 81003; 82550; 82553; 83690; 83735; 84484; 85025; 85610; 85730; 93005; 94760; 96360; 96361; G0378